=== PATIENT | male | born 1970 | race African-American/Black ===

== ENCOUNTER 2018-12-16 00:41 | Emergency (ER) | payer OTHER ==
[~2018-12-16] VITALS: Ht 185.4 cm; Wt 105.0 kg
[2018-12-16] MEDS ORDERED: TRAMADOL 50MG TABLET PO ONE (02:15)
[2018-12-16] MEDS ORDERED: KETOROLAC 30MG/ML VIAL IV ONE (02:15)
[2018-12-16 02:47] LABS: BASOPHILS % 0.7 % (0.0-2.0); EOSINOPHILS % 0.8 % (0.0-5.0); HEMATOCRIT. 42.9 % (42.0-52.0); HEMOGLOBIN. 14.4 g/dL (14.0-18.0); MEAN CORPUSCULAR HEMOGLOBIN 28.2 pg (28.0-32.0); MEAN CORPUSCULAR VOLUME 84.3 fL (80.0-94.0); MEAN PLATELET VOLUME 9.4 fl (7.4-10.4); MONOCYTES % 6.9 % (2.0-8.0); NEUTROPHILS % 80.6 % (40.0-76.0); PLATELET 189 x1000/uL (130-400); RED BLOOD CELL COUNT 5.09 mill/uL (4.7-6.1); RED CELL DISTRIBUTION WIDTH 13.6 % (11.6-14.6)
[2018-12-16] MEDS: KETOROLAC 15MG/ML VIAL IV NR ×3 (03:20→03:23)
[2018-12-16 05:57] VITALS: BP 127/68
== END 2018-12-16 06:00 | disposition home or self-care (01) ==
LOC: ER 00:41
DX: F41.9 Anxiety disorder, unspecified (principal); I16.0 Hypertensive urgency; R00.2 Palpitations; M54.9 Dorsalgia, unspecified; I10 Essential (primary) hypertension
CPT/HCPCS: 36415; 71045; 84484; 85025; 93005; 96374; 99284; J1885; Z7610